=== PATIENT | male | born 1965 | race Caucasian/White ===

== ENCOUNTER 2017-04-16 00:14 | Emergency (ER) | payer OTHER ==
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
[~2017-04-16 00:14] MED LIST: ALTACE10 M2 PO; CLOPIDOGREL75 MG PO; LIPITOR80 MG PO; LO-DOSE ASPIRIN81 M1 PO; METFORMIN HCL500 M1 PO; PLAVIX PO; RAMIPRIL10 MG PO; VITAMIN D-32000 UNI1 PO
[2017-04-16] MEDS ORDERED: ASPIR-TRIN325 MG (00:45)
[2017-04-16 03:59] LABS: BASOPHIL% 0.2 % (0-2.5); EOSINOPHIL% 0.2 % (0.0-7.0); HEMATOCRIT 40.6 % (38.0-50.0); HEMOGLOBIN 13.3 gm/dL (13.0-16.0); LYMPHOCYTE# 1.7 X10e3 (1.0-3.5); MEAN CELL VOLUME 80.6 FL (83-96); MEAN CORPUSCULAR HEMOGLOBIN 26.5 PG (28-34); MEAN CORPUSCULAR HGB CONC 32.9 g/dL (30-36); MEAN PLATELET VOLUME 7.9 FL (6.5-11.5); MONOCYTE# 1.1 X10e3 (0-1.0); MONOCYTE% 5.3 % (3.0-12.0); NEUTROPHIL# 18.5 X10e3 (1.5-7.1); NEUTROPHIL% 86.3 % (40-75); PLATELET COUNT 359 X10e3 (140-420); RED BLOOD COUNT 5.04 X10e (3.90-5.60); RED CELL DISTRIBUTION WIDTH 17.1 % (11.0-15.5); WHITE BLOOD COUNT 21.4 X10e3 (4.0-10.5)
[2017-04-16 04:00] LABS: DIFF IND YES
[2017-04-16 04:01] LABS: PARTIAL THROMBOPLASTIN TIME 25.9 SECONDS (23.5-31.3)
[2017-04-16 04:14] LABS: ALBUMIN SERUM 3.8 g/dL (3.5-5.0); BILIRUBIN,TOTAL 0.6 mg/dL (0.2-2.0); BUN/CREATININE RATIO 14.44; CALCIUM SERUM 9.1 mg/dL (8.4-10.2); CREATININE SERUM 0.9 mg/dL (0.6-1.4); GLOM FILT RATE Estimated 97.9 mL/min (>60); POTASSIUM 4.3 mmol/L (3.5-5.1); PROTEIN TOTAL SERUM 7.8 g/dL (6.0-8.3)
[2017-04-16 04:18] LABS: PLATELET ESTIMATE NORMAL (NORMAL)
[2017-04-16 04:19] LABS: ANISOCYTOSIS MOD; MICROCYTOSIS SL
== END 2017-04-16 08:45 | disposition hospice, home (50) ==
LOC: CED 00:14
PROVIDERS: Nurse Practitioner Family
DX: S01.81XA Laceration without foreign body of other part of head, initial encounter (principal); I10 Essential (primary) hypertension; E11.9 Type 2 diabetes mellitus without complications; F17.200 Nicotine dependence, unspecified, uncomplicated; Z23 Encounter for immunization; Y04.0XXA Assault by unarmed brawl or fight, initial encounter; Y92.830 Public park as the place of occurrence of the external cause
CPT/HCPCS: 70450; 70498; 71010; 71260; 72125; 80053; 85025; 85610; 85730; 90471; 90715; 96360; 96361; 99285; Q9967